=== PATIENT | male | born 1990 | race Caucasian/White ===

== ENCOUNTER 2021-03-24 01:56 | Emergency (ER) | payer MEDICAID, SELFPAY ==
--- NOTE | 2021-03-24 | ECG_ITS ---
Test Reason : overdose Blood Pressure : / mmHG Vent. Rate : 106 BPM Atrial Rate : 106 BPM P-R Int : 130 ms QRS Dur : 100 ms QT Int : 420 ms P-R-T Axes : 066 037 069 degrees QTc Int : 557 ms Sinus tachycardia with frequent Premature ventricular complexes Prolonged QT Abnormal ECG No previous ECGs available Referred By: Generic ED Physician Electronically Signed By:Carlos Randolph
[2021-03-24 02:13] VITALS: BP 123/80; BP 156/80; PULSE 106; PULSE 110; RESP 17; TEMP 36.9; O2SAT 100; O2SAT 98; BMI 26.6
[2021-03-24 02:53] LABS: MANUAL DIFF FLAG NO
--- NOTE | 2021-03-24 02:53 | PC.NURSE ---
While at bedside obtaining EKG, line/labs, this RN notes pt to be in bigeminy. This RN notifies Dr Christopher who states yeah, that sometimes happens when people are using drugs. Pt remains on bedside cardiac rn, VSS. Pt offers no complaints of CP, palpitations, lightheadedness, dizziness. Awaiting lab results, ED provider eval and dispo. Stretcher in lowest locked position, rails raised, call meyers within reach.
[2021-03-24 02:59] LABS: Basophils Percent Auto 0.3 % (0-2); Eosinophils Absolute Auto 0.2 X10*3/uL (0.0-0.4); Eosinophils Percent Auto 2.2 % (0-4); Hematocrit 39.2 % (42.0-52.0); Hemoglobin 12.8 g/dl (14.0-18.0); Imm Gran Abs Auto 0.05 X10*3/uL (0.00-0.03); Imm Gran Pct Auto 0.6 % (0.0-0.4); Lymphocytes Absolute Auto 1.8 X10*3/uL (1.2-4.9); Lymphocytes Percent Auto 19.9 % (20-40); Mean Corpuscular HGB Conc 32.7 g/dl (31.0-36.0); Mean Corpuscular Hemoglobin 28.1 pg (27.0-33.0); Mean Platelet Volume 8.3 fL (9.4-12.4); Monocytes Absolute Auto 0.9 X10*3/uL (0.1-1.2); Monocytes Percent Auto 10.3 % (2-11); Neutrophils Absolute Auto 5.9 x10*3/uL (2.0-8.3); Neutrophils Percent Auto 66.7 % (45-73); Platelet Count 199 X10*3/uL (160-400); Red Blood Count 4.56 X10*6/uL (4.60-5.80); Red Cell Distribution Width 15.6 % (11.0-16.0); White Blood Count 8.9 X10*3/uL (4.8-10.8)
[2021-03-24 03:19] LABS: COVID-19 Test Positive (Negative)
[2021-03-24 03:21] LABS: Alanine Aminotransferase 1249 U/L (0-40); Alkaline Phosphatase 120 U/L (39-117); Anion Gap 14 (12-20); Aspartate Amino Transferase 460 U/L (5-37); Bilirubin Total 0.9 mg/dL (0.0-1.0); Blood Urea Nitrogen 23 mg/dL (9-16); Calcium 9.3 mg/dL (8.4-10.2); Carbon Dioxide 29 mmol/L (22-29); Chloride 103 mmol/L (96-108); Creatinine Clr Calc Pharmacy 106.7; Estimated Glomerular Filt Rate > 60; Glucose Random 91 mg/dL (60-115); Potassium 4.6 mmol/L (3.3-5.1); Sodium 141 mmol/L (135-145); Total Protein 6.7 g/dL (6.5-8.0)
[2021-03-24 04:47] VITALS: BP 120/47; PULSE 74; RESP 22; TEMP 37.6; O2SAT 96
[2021-03-24] MEDS: 0.9 % Sodium Chloride 2,000 ML 999 ML IV (05:07)
[2021-03-24] MEDS: Ibuprofen 400 MG TABLET PO (05:13)
[2021-03-24] MEDS: Acetaminophen 325 MG TABLET 975 MG PO (05:14)
--- NOTE | 2021-03-24 06:28 | ED_ITS ---
HPI - Overdose General Chief Complaint: Overdose Stated Complaint: OD Time Seen by Provider: 03/24/21 04:33 Source: patient Mode of arrival: EMS History of Present Illness HPI Narrative: 30-year-old male arrives via EMS after he was found in an ally where passersby call 911 for an unresponsive male. Please department arrived, administered 4 mg of nasal Narcan and at the time that EMS arrived patient was alert and oriented, calm and cooperative. Patient reports using 1 bag of heroin and states that is prior use was approximately 1 month ago. He denies any attempts to kill himself. In addition, patient miss using cocaine yesterday but denies any other drug use. Patient does endorse that he has had generalized body aches for the past 36 hours and denies any trauma. Related Data Allergies Allergy/AdvReac Type Severity Reaction Status Date / Time seafood Allergy Difficulty Verified 03/24/21 02:18 Breathing Review of Systems Review of Systems: Pertinent positives and negatives as stated in HPI 10 point review of systems is otherwise negative. PMFSH Past Medical History Source: nursing notes reviewed Social History Social History Advance Directives: No Physical Exam Vital Signs: Vital Signs: Last Vital Signs Temp 98.4 F 03/24/21 06:38 Pulse 56 03/24/21 06:38 Resp 19 03/24/21 06:38 BP 116/50 L 03/24/21 06:38 Pulse Ox 98 03/24/21 06:38 BMI result Body Mass Index 26.6 Course Course Course Narrative: 30-year-old male with history and clinical presentation consistent with accidental overdose noted to be COVID-19 positive. MDM - Overdose Lab Data Result diagrams: 03/24/21 02:46 03/24/21 02:46 Labs: Lab Results 03/24/21 03/24/21 03/24/21 Range/Units 02:46 02:46 02:46 WBC 8.9 (4.8-10.8) X10*3/uL RBC 4.56 L (4.60-5.80) X10*6/uL Hgb 12.8 L (14.0-18.0) g/dl Hct 39.2 L (42.0-52.0) % MCV 86.0 (80.0-98.0) fL MCH 28.1 (27.0-33.0) pg MCHC 32.7 (31.0-36.0) g/dl RDW 15.6 (11.0-16.0) % Plt Count 199 (160-400) X10*3/uL MPV 8.3 L (9.4-12.4) fL Immature Gran % (Auto) 0.6 H (0.0-0.4) % Neut % (Auto) 66.7 (45-73) % Lymph % (Auto) 19.9 L (20-40) % [place] % (Auto) 10.3 (2-11) % Eos % (Auto) 2.2 (0-4) % Baso % (Auto) 0.3 (0-2) % Lymph # (Auto) 1.8 (1.2-4.9) X10*3/uL [place] # (Auto) 0.9 (0.1-1.2) X10*3/uL Eos # (Auto) 0.2 (0.0-0.4) X10*3/uL Baso # (Auto) 0.0 (0.0-0.2) X10*3/uL Abs Immat Gran (auto) 0.05 H (0.00-0.03) X10*3/uL Absolute Neuts (auto) 5.9 (2.0-8.3) x10*3/uL Absolute Nucleated RBC 0.000 (0.0-0.012) X10*3/uL Nucleated RBC % (auto) 0.0 (0.0-0.2) /100WBC Sodium 141 (135-145) mmol/L Potassium 4.6 (3.3-5.1) mmol/L Chloride 103 (96-108) mmol/L Carbon Dioxide 29 (22-29) mmol/L Anion Gap 14 (12-20) BUN 23 H (9-16) mg/dL Creatinine 1.03 (0.5-1.4) mg/dL Estim Creat Clear Calc 106.7 Estimated GFR > 60 Random Glucose 91 (60-115) mg/dL Calcium 9.3 (8.4-10.2) mg/dL Total Bilirubin 0.9 (0.0-1.0) mg/dL AST 460 H (5-37) U/L ALT 1249 H (0-40) U/L Alkaline Phosphatase 120 H (39-117) U/L Total Creatine Kinase 938 H (38-174) U/L Total Protein 6.7 (6.5-8.0) g/dL Albumin 4.0 (3.5-5.0) g/dL COVID-19 (FLAVIO) Positive A (Negative) COVID-19 Clin Com See Note Discharge Plan Discharge Clinical Impression: Drug overdose, COVID-19 Patient Disposition: Home, Self-Care Instructions: COVID-19 (Coronavirus Disease 2019) (ED), Adult Overdose (ED) Additional Instructions: Increase your water intake over the next 24-48 hours You must isolate yourself as per state and Federal for COVID-19 infection. Recommend using [id number] Tylenol/ibuprofen as needed for body aches and temperatures greater than 100.4. Return to the ER for worsening symptoms.
[2021-03-24 06:38] VITALS: BP 116/50; PULSE 56; RESP 19; TEMP 36.9; O2SAT 98
[2021-03-24 08:17] LABS: ~HepC Num1 17.67 S/CO (0.00-0.79); ~Hepatitis C Antibody Reactive (Nonreactive)
== END 2021-03-24 08:30 | disposition home or self-care (01) ==
PROVIDERS: Emergency Provider Student in an Organized Health Care Education/Training Program
DX: U07.1 COVID-19 (principal); T40.1X1A Poisoning by heroin, accidental (unintentional), initial encounter; T40.5X1A Poisoning by cocaine, accidental (unintentional), initial encounter; R40.4 Transient alteration of awareness; Y92.488 Other paved roadways as the place of occurrence of the external cause; B19.20 Unspecified viral hepatitis C without hepatic coma
CPT/HCPCS: 36415; 80053; 82550; 85025; 86803; 87635; 93005; 96360; 96361; 99284